=== PATIENT | male | born 1945 | race Hispanic/Latino ===

== ENCOUNTER 2020-12-14 11:14 | Outpatient (CLI) | payer MEDICARE, OTHER ==
--- NOTE | 2020-12-14 12:41 | Cat Scan Report ---
CT ABDOMEN AND PELVIS WITHOUT CONTRAST HISTORY: PELVIC AND PERINEAL PAIN COMPARISON: None. TECHNIQUE: Axial CT images were obtained through the abdomen and pelvis without IV contrast. Sagittal and coronal reformatted images. All CT scans at this location are performed using CT dose reduction for ALARA by means of automated exposure control. FINDINGS: CT ABDOMEN: Lung Bases: Clear. Liver: The liver is normal size, contour and density. There are multiple tiny hypodensities scattered throughout the liver consistent with tiny cysts or hemangiomas. Biliary: Multiple tiny calcified gallstones are noted within the gallbladder. No abnormal distention, wall thickening or surrounding fluid. Spleen: No significant abnormality. Unenlarged. Pancreas: No significant abnormality. Adrenals: No significant abnormality. Kidneys: There is moderate bilateral hydronephrosis. There are 2 cysts at the superior pole of the ri ght kidney measuring up to 3.9 cm. No nephrolithiasis is appreciated. Lymphatics: No lymphadenopathy. Vasculature: No significant abnormality. Bowel/Peritoneum: No evidence for bowel obstruction or focal inflammation. Normal appendix. There is a large left inguinal hernia containing small bowel loops and sigmoid colon. The hernia sac measures up to 14 x [address] PELVIS: : The bladder is markedly distended. No obvious bladder mass. The prostate gland is enlarged measur ing 6.5 cm. Osseous Structures: Osteopenia. Moderate thoracolumbar spondylosis. No acute osseous findings or susp icious bony lesion. Left hip replacement appears intact. There are moderate to severe degenerative ch anges at the right hip. Additional Findings: None IMPRESSION: Markedly distended bladder with bilateral hydronephrosis. Correlate for bladder outlet obstruction. Enlarged prostate gland measuring 6.5 cm in diameter. Large left inguinal hernia containing small bowel loops and sigmoid colon. No evidence for obstructio n or acute inflammation. Osteopenia and degenerative findings as described. Signer Name: Damián Dutta Jr, MD Signed: 12/14/2020 12:37 PM Workstation Name: [id number]
== END 2020-12-14 11:15 | disposition home or self-care (01) ==
LOC: CT 11:14
PROVIDERS: ATTEND Urology
DX: N28.1 Cyst of kidney, acquired (principal); N13.39 Other hydronephrosis; K80.20 Calculus of gallbladder without cholecystitis without obstruction; K40.90 Unilateral inguinal hernia, without obstruction or gangrene, not specified as recurrent; M16.11 Unilateral primary osteoarthritis, right hip; N40.0 Benign prostatic hyperplasia without lower urinary tract symptoms; M47.815 Spondylosis without myelopathy or radiculopathy, thoracolumbar region
CPT/HCPCS: 74176